=== PATIENT | male | born 1930 | race Caucasian/White ===

== ENCOUNTER 2017-06-09 08:31 | Day surgery (SDC) | payer MEDICARE, OTHER ==
[~2017-06-09] VITALS: Ht 177.8 cm; Wt 69.2 kg
[~2017-06-09 08:31] MED LIST: ASPIRIN 81M81 MG/TA2 PO; DUO-KAPS1 CAP PO; FISH OIL1000 MG PO; K-TAB20; LASIX 20MG TABL20 MG PO; PRAVACHOL80 MG PO; VITAMIN C500 MG PO
[2017-06-09 09:19] VITALS: BP 121/49; PULSE 71; TEMP 97.3
[2017-06-09 09:24] LABS: INR 1.6 (0.8-3.0); PROTHROMBIN TIME 17.9 SECONDS (9.7-12.8)
[2017-06-09] MEDS ORDERED: SYNTHROID 0.0.025 MG PO (09:25)
[2017-06-09] MEDS ORDERED: COUMADIN 5MG5 MG/TAB PO (09:27)
[2017-06-09] MEDS ORDERED: COUMADIN 22.5 MG/TAB PO (09:28)
[2017-06-09] MEDS ORDERED: LASIX 20MG TABL20 MG PO (09:30)
[2017-06-09] MEDS ORDERED: CALCIUM CARBON650 M2 (09:32)
[2017-06-09] MEDS ORDERED: MULTIPLE VITAMI1 CAP PO (09:32)
[2017-06-09] MEDS ORDERED: NORCO 325 MG-51 TAB PO (11:24)
[2017-06-09 13:00] VITALS: BP 144/57; PULSE 61; TEMP 98.3
== END 2017-06-09 13:50 | disposition home or self-care (01) ==
LOC: SDCO 08:31
PROVIDERS: Surgery
DX: K40.30 Unilateral inguinal hernia, with obstruction, without gangrene, not specified as recurrent (principal); E03.9 Hypothyroidism, unspecified; I25.2 Old myocardial infarction; I25.10 Atherosclerotic heart disease of native coronary artery without angina pectoris; M19.90 Unspecified osteoarthritis, unspecified site; Z90.79 Acquired absence of other genital organ(s); Z79.01 Long term (current) use of anticoagulants; Z85.46 Personal history of malignant neoplasm of prostate; Z86.718 Personal history of other venous thrombosis and embolism; Z82.49 Family history of ischemic heart disease and other diseases of the circulatory system
CPT/HCPCS: J0690; J1100; J2270; J2704; J3010; J7120

== ENCOUNTER 2018-02-09 08:34 | Day surgery (SDC) | payer MEDICARE, OTHER ==
[~2018-02-09] VITALS: Ht 177.8 cm; Wt 71.2 kg
[~2018-02-09 08:34] MED LIST changes: +CALCIUM CARBON650 M2; +COUMADIN 22.5 MG/TAB PO; +COUMADIN 5MG5 MG/TAB PO; +MULTIPLE VITAMI1 CAP PO; +NORCO 325 MG-51 TAB PO; +SYNTHROID 0.0.025 MG PO
[2018-02-09 09:23] VITALS: BP 121/57; PULSE 58; TEMP 97.3
[2018-02-09] MEDS ORDERED: NORCO 325 MG-51 TAB PO (12:24)
[2018-02-09 12:25] VITALS: BP 143/52; PULSE 52; TEMP 97.2
[2018-02-09 12:40] VITALS: BP 150/62; PULSE 54
[2018-02-09 12:55] VITALS: BP 148/52; PULSE 53
== END 2018-02-09 13:10 | disposition home or self-care (01) ==
LOC: SDCO 08:34
DX: K40.90 Unilateral inguinal hernia, without obstruction or gangrene, not specified as recurrent (principal); Z86.718 Personal history of other venous thrombosis and embolism; Z79.01 Long term (current) use of anticoagulants; Z79.899 Other long term (current) drug therapy; E03.9 Hypothyroidism, unspecified; I51.9 Heart disease, unspecified; Z85.46 Personal history of malignant neoplasm of prostate
CPT/HCPCS: C1781; J0690; J2704; J3010; J7120

== ENCOUNTER → 2018-07-04 | Outpatient (CLI) | payer MEDICARE, OTHER | LOC: COL.RAD 10:10 | DX: R10.13 Epigastric pain (principal) ==

== ENCOUNTER → 2018-07-30 | Outpatient (CLI) | payer MEDICARE, OTHER | LOC: COL.RAD 06:43 | DX: R10.11 Right upper quadrant pain (principal) | CPT/HCPCS: A9537 ==

== ENCOUNTER 2019-06-27 22:15 | Inpatient (IN) | payer MEDICARE, OTHER ==
[~2019-06-27] VITALS: Ht 177.8 cm; Wt 74.4 kg
[2019-06-27 22:42] LABS: BASO # 0.1 (0.0-0.2); BASO % 0.3 % (0.0-2.0); EOS % 0.1 % (0-4.0); GRAN # 12.8 (1.4-6.5); GRAN % 86.7 % (42.2-75.2); HEMATOCRIT 43.4 % (42.0-52.0); HEMOGLOBIN 14.7 g/dl (13.5-18.0); LYMPH # 1.2 (1.2-3.4); LYMPH % 8.3 % (20.0-51.0); MEAN CELL VOLUME 93 fl (80.0-100.0); MEAN CORPUSCULAR HEMOGLOBIN 32 pg (27.0-31.0); MEAN CORPUSCULAR HGB CONC 34 g/dl (33.0-37.0); MEAN PLATELET VOLUME 9.3 fl (7.4-10.4); MONO # 0.6 (0.1-0.6); MONO % 3.9 % (1.7-9.3); PLATELET COUNT 551 K/mm3 (130-400); RED BLOOD COUNT 4.66 M/mm3 (4.20-5.60); REDCELL DISTRIBUTION WIDTH-CV 14.4 % (11.5-14.5)
[2019-06-27 22:54] LABS: ALBUMIN 4.5 gm/dL (3.5-5.0); CALCIUM 9.3 mg/dL (8.4-10.2); CREATININE, serum 1.03 (0.66-1.25); TOTAL PROTEIN 7.6 gm/dL (6.4-8.2)
[2019-06-27 22:56] LABS: INR 1.8 (0.8-3.0); PROTHROMBIN TIME 21.8 SECONDS (9.7-12.8)
[2019-06-27 22:59] LABS: PARTIAL THROMBOPLASTIN TIME 37.3 SECONDS (26.0-37.0)
[2019-06-27 23:06] LABS: TROPONIN-I 0.013 ng/mL (0.000-0.035)
[2019-06-28] VITALS (8 sets, daily range): BP systolic 147–170; BP diastolic 72–99; PULSE 67–83; TEMP 97.5–98.6
[2019-06-28 02:08] LABS: COLLECTION METHOD CLEAN CATCH
[2019-06-28 02:17] LABS: MUCOUS Present /lpf; PH 6 (5-8); SQUAMOUS EPITHELIAL None Seen /hpf; URINE APPEARANCE Clear; URINE BACTERIA None Seen /hpf; URINE BILIRUBIN Negative (NEGATIVE); URINE BLOOD Negative (NEGATIVE); URINE COLOR Yellow; URINE GLUCOSE 2+ (NEGATIVE); URINE KETONE 2+ (NEGATIVE); URINE LEUKOCYTE ESTERASE Negative (NEGATIVE); URINE NITRATE Negative (NEGATIVE); URINE PROTEIN(semi-quant) Negative (NEGATIVE); URINE UROBILINOGEN Negative (NEGATIVE)
--- NOTE | 2019-06-28 03:30 | NUR ---
Patient to room via cart escorted by ER staff. O2 connected at 2L/NC. IV fluid bolus infusing at this time. 20 gauge in left AC with dressing CDI, no redness/drainage/edema noted at site. Respirations even and unlabored. Complains of pain in abd, chest, and upper back and describes as sharp. Family at bedside.
[2019-06-28] MEDS ORDERED: PROTONIX 40MG T40 MG PO (04:05)
--- NOTE | 2019-06-28 05:56 | NUR ---
Lying in bed in supine position with HOB elevated approximately 35 degrees. Patient nauseated and will occasionally have small amount of clear emesis. Continues to have some pain in the abdomen, chest, and upper back. Denies further needs at this time.
--- NOTE | 2019-06-28 06:16 | NUR ---
Administer phenergan as prescribed at this time. Patient says that he just does not feel well with the nausea and pain in stomach. Provided reassurance. Assisted patient in finding comfortable position in the bed. Patient denies further needs at this time.
[2019-06-28 08:01] LABS: HEMATOCRIT 45.6 % (42.0-52.0); HEMOGLOBIN 15.1 g/dl (13.5-18.0); MEAN CELL VOLUME 95 fl (80.0-100.0); MEAN CORPUSCULAR HEMOGLOBIN 32 pg (27.0-31.0); MEAN CORPUSCULAR HGB CONC 33 g/dl (33.0-37.0); MEAN PLATELET VOLUME 9.4 fl (7.4-10.4); PLATELET COUNT 552 K/mm3 (130-400); RED BLOOD COUNT 4.78 M/mm3 (4.20-5.60); REDCELL DISTRIBUTION WIDTH-CV 14.5 % (11.5-14.5)
[2019-06-28 08:11] LABS: CALCIUM 8.7 mg/dL (8.4-10.2); CREATININE, serum 0.93 (0.66-1.25); POTASSIUM 4.2 mmol/L (3.4-5.0)
[2019-06-28 08:24] LABS: BAND 13 % (0-10); LYMPHOCYTE 2 % (20.0-51.0); NEUTROPHILS 79 % (42.0-75.2); PLATELET ESTIMATE INCREASED (NORMAL)
--- NOTE | 2019-06-28 09:03 | NUR ---
Pt assessment completed and charted. Pt laying in bed, very drowsy, states he hasn't "slept much since being here w/ everything they have been doing". Pt on 3L NC, denies dizziness, chest pain, numbness, tingling. C/O nausea, minimal emesis in basin. Refused morning medications, pt is NPO. Radial and pedal pulses strong bilaterally. LS diminished throughout. LAC IV w/ IVF at 250 ml/hr, order to decrease rate to 150 w/ next bag. No other concerns expressed at this time. Therapy in to work w/ patient.
--- NOTE | 2019-06-28 09:52 | NUR ---
NIDHI met with the patient's , Alysia (ph#[phone]), to discuss discharge plan. The patient was sleeping. The patient lives in [place] with his . Alysia reports that the patient is independent with ADLs and has a cane. The patient's PCP is Dr. Elijah Nash and she receives her medications at [facility]. Alysia reports no difficulties obtaining her meds. The patient does not have advanced directives in EMR, but Alysia reports that the patient does have them completed and that she is his DPOA-HC. The patient plans to return home with Alysia upon discharge. No other additional needs at this time, but SW to continue to follow.
--- NOTE | 2019-06-28 11:33 | NUR ---
First visit from the board turner. Family asked if board turner would call their orthodoxy. Appliance Servicer called their orthodoxy and let them know that they were here. No other needs right now.
--- NOTE | 2019-06-28 13:53 | NUR ---
Radiology notified about NG tube insertion, no radioligist here today, awaiting for elevating grader operator to get back to this nurse. Dr. Underwood in to visit w/ patient again at this time, requesting info on why NG tube not placed. bench repair technician called again, informed this nurse of contact w/ radiologist machine container washer. This nurse attempted to contact Dr. Underwood about situation. Unable to get ahold of physician at this time. Will contact again.
--- NOTE | 2019-06-28 14:56 | NUR ---
This nurse was able to reach BETH Durbin for nursing staff to place NG tube. JEANETH Caldwell on floor, NG tube placed, hooked to low intermittent suction. Pt tolerated well. Tube secured to nose/gown and at 65 in. No other concerns expressed.
--- NOTE | 2019-06-28 16:45 | NUR ---
Pt called nurse station for help, pt pulled out NG tube. New 16F NG tube placed in left nares. Placement confirmed by xray. Tube is at 54, secured to nose and on low intermittent suction w/ beatty drainage.
--- NOTE | 2019-06-28 19:00 | NUR ---
Pt VS verified, noticed O2 was charted as 81% on 4L NC. This nurse checking on patient. Pt not wearing NC, NC put on, pt on 4.5 L, monitoring O2 sats. Pt sleeping, satting at 90%. Pt does have NG tube in and breathing mostly through mouth. Will continue to monitor.
--- NOTE | 2019-06-28 19:55 | NUR ---
Pt awakened while monitoring O2 sats. O2 jumped to 93-94% on 4.5 LNC. Pt turned back down to 3L NC and satting at 91-92% while awake. Discussed with rn night nurse and RT about possible increasing of o2 needs while sleeping d/t NG tube and breathing w/ mouth open. Staff will monitor. New blankets and covers given to patient. Family at bedside. No other concerns expressed at this time. NG tube on low intermittent suction, beatty drainage.
--- NOTE | 2019-06-28 20:30 | NUR ---
Patient assessed at this time. Drowsy, but awakened easliy. Alert and oriented x 4. Denies having pain and discomfort. NS running at 150 ml/hr to peripheral IV to left AC. Site is without redness, warmth, swelling, and pain. Denies having SOB and dyspnea. On oxygen at 3 L/min via NC. LS CTA in upper lobes, diminished in lower lobes. HRR. Telemetry: NS. NG tube to left nare: low intermittent suction with beatty contents. Some blood present, Dr. Underwood is aware and related to placement. BSAx4. Abdomen soft and non-tender. No edema. Voices no questions, needs, or concerns at this time. Resting in bed with call light within reach. HOB elevated.
--- NOTE | 2019-06-28 22:00 | NUR ---
Patient Lactic increased from 3.0 to 3.7. Called to Dr. Underwood for update. Order to recheck in 2 hours, and notify him if increases more. Order updated. Lab aware.
[2019-06-29] VITALS (49 sets, daily range): BP systolic 139–152; BP diastolic 67–97; PULSE 75–107; TEMP 98.1–99; O2SAT 86–99
[2019-06-29 03:07] LABS: ARTERIAL BLD GAS O2 SATURATION 91.2 % (92-100); ARTERIAL BLD GAS TCO2 CT 19.9; ARTERIAL BLOOD GAS BASE EXCESS -3.8 (-2-2); ARTERIAL BLOOD GAS HCO3 19.1 meq/L (22-26); ARTERIAL BLOOD GAS PCO2 29.1 mmHg (35-45); ARTERIAL BLOOD GAS PO2 57.2 mmHg (80-100); ARTERIAL BLOOD GAS pH 7.43 (7.35-7.45)
--- NOTE | 2019-06-29 03:45 | NUR ---
Report received from Rufina Histogen [facility].
--- NOTE | 2019-06-29 04:00 | NUR ---
Pt arrived via medical bed with personal belongings X2 nurse staff assistance. Pt is assisted with transfer X4 staff members into ICU 02 bed. Monitors attached and assessment completed.
--- NOTE | 2019-06-29 04:16 | NUR ---
At approximately 0235, this nurse went to check on patient. Patient coughing, turning red in the face. Used flashlight to look in throat. NG tube noted to be coiled up with end in mouth. NG tube taken out. VS: 98.7 78 24 142/72 87% on oxygen at 4 L/min via NC. Patient with frequent moist cough. LS coarse crackles in upper lobes, diminished in lower lobes. Called and updated CONSULTANT EDUCATION. Requested to notify Dr. Underwood to see what he suggests. Called and updated Dr. Underwood. Stated that he recommends chest X-ray and that patient may need BIPAP, but would defer that decision to hospitalist. Called and updated CONSULTANT EDUCATION again. Order for STAT ABG and X-ray. Notified RT and radiology. CONSULTANT EDUCATION in to see patient. Received orders to have patient transfer to ICU. Called and report given to ICU nurse at approximately 0350. Patient taken down to ICU.
--- NOTE | 2019-06-29 04:52 | NUR ---
Called and updated Alysia, patient's at this time of patient condition and transfer to ICU.
[2019-06-29 05:17] LABS: HEMATOCRIT 42.2 % (42.0-52.0); MEAN CELL VOLUME 96 fl (80.0-100.0); MEAN CORPUSCULAR HEMOGLOBIN 32 pg (27.0-31.0); MEAN CORPUSCULAR HGB CONC 33 g/dl (33.0-37.0); MEAN PLATELET VOLUME 9.3 fl (7.4-10.4); PLATELET COUNT 538 K/mm3 (130-400); RED BLOOD COUNT 4.41 M/mm3 (4.20-5.60)
[2019-06-29 05:23] LABS: INR 3.9 (0.8-3.0)
[2019-06-29 05:29] LABS: ALBUMIN 3.7 gm/dL (3.5-5.0); BILIRUBIN,TOTAL 1.1 mg/dL (0.0-1.0); CALCIUM 8.4 mg/dL (8.4-10.2); CREATININE, serum 1.14 (0.66-1.25); TOTAL PROTEIN 6.5 gm/dL (6.4-8.2)
[2019-06-29 05:39] LABS: BAND 14 % (0-10); EOSINOPHIL 1 % (0-4); LYMPHOCYTE 2 % (20.0-51.0); NEUTROPHILS 78 % (42.0-75.2)
[2019-06-29 05:40] LABS: PLATELET ESTIMATE INCREASED (NORMAL)
[2019-06-29 05:44] LABS: ARTERIAL BLD GAS O2 SATURATION 92.9 % (92-100); ARTERIAL BLD GAS TCO2 CT 21.7; ARTERIAL BLOOD GAS BASE EXCESS -2.6 (-2-2); ARTERIAL BLOOD GAS HCO3 20.7 meq/L (22-26); ARTERIAL BLOOD GAS pH 7.43 (7.35-7.45)
--- NOTE | 2019-06-29 07:05 | NUR ---
Bedside report provided to Pamela ERIC.
--- NOTE | 2019-06-29 12:00 | NUR ---
PATIENT LEAVES FOR [facility] AT THIS TIME. REPORT GIVEN TO BO, FRANKFURTER INSPECTOR WITH [facility]. REPORT ALSO CALLED TO JEANETH HEATH AT [facility]. PRESENT WHEN PATIENT LEAVES.
== END 2019-06-29 12:00 | disposition short-term general hospital (02) | DRG 871 ==
LOC: COL.ER 22:15 → MEDICAL 06-28 02:09 → ICU 06-29 04:10
PROVIDERS: Emergency Medicine; Nurse Practitioner Family; ADMIT Internal Medicine
DX: A41.9 Sepsis, unspecified organism (principal); J18.9 Pneumonia, unspecified organism; J96.01 Acute respiratory failure with hypoxia; K21.9 Gastro-esophageal reflux disease without esophagitis; K44.9 Diaphragmatic hernia without obstruction or gangrene; I25.10 Atherosclerotic heart disease of native coronary artery without angina pectoris; E03.9 Hypothyroidism, unspecified; R73.9 Hyperglycemia, unspecified; Z85.46 Personal history of malignant neoplasm of prostate; I25.2 Old myocardial infarction; Z86.73 Personal history of transient ischemic attack (TIA), and cerebral infarction without residual deficits; Z79.01 Long term (current) use of anticoagulants; Z90.79 Acquired absence of other genital organ(s); Z98.42 Cataract extraction status, left eye; Z98.41 Cataract extraction status, right eye; Z86.718 Personal history of other venous thrombosis and embolism
CPT/HCPCS: 99223-AI; A4216; C9113; J0696; J1170; J1650; J2270; J2405; J2543; J2550; J3010; J3430; J7030; Q9967

== ENCOUNTER 2020-09-30 10:43 | Day surgery (SDC) | payer MEDICARE, OTHER ==
[~2020-09-30] VITALS: Ht 177.8 cm; Wt 70.1 kg
[~2020-09-30 10:43] MED LIST changes: -MULTIPLE VITAMI1 CAP PO; +MULTIPLE VITAMI1 TA5 PO; +PROTONIX 40MG T40 MG PO
[2020-09-30 11:01] VITALS: BP 131/59; PULSE 64; TEMP 97.9
[2020-09-30 13:09] VITALS: BP 112/61; PULSE 59; TEMP 97.5
--- NOTE | 2020-09-30 13:09 | NUR ---
The patient arrived back to [place] [facility] from the operating room at this time. The patient appears drowsy but arouses easily to his name. The patient's post operative vital signs were started at this time. The patient's dressing to his left groin appears clean, dry and intact. The patient's is at his bedside at this time. Call light is within reach. Will continue to monitor the patient.
[2020-09-30 13:24] VITALS: BP 128/62; PULSE 53
--- NOTE | 2020-09-30 13:24 | NUR ---
The patient appears more alert at this time and agrees to try some orange juice and a muffin at this time. The patient's was given some water and a muffin also. The patient denies any pain or nausea at this time. Vital signs appear stable. Will conitnue to monitor the patient.
[2020-09-30 13:39] VITALS: BP 149/55; PULSE 55
--- NOTE | 2020-09-30 13:44 | NUR ---
The patient appeared to tolerate the food and drink well. The patient's vital signs remani stable. Call light is within reach. Will continue to monitor the patient.
[2020-09-30 14:00] VITALS: BP 148/55; PULSE 57
--- NOTE | 2020-09-30 14:00 | NUR ---
Discharge instructions were reviewed with the patient and his at this time. They both verbalized understanding and have no questions for the nurse at this time. The patient's IV to his left wrist was removed and a pressure dressing was applied to the site. The nurse instructed the patient to get dressed and notify the staff when he is ready to be escorted out.
--- NOTE | 2020-09-30 14:15 | NUR ---
The patient was escorted out via wheelchair to a private vehicle by JEANETH Bagley. The patient's belongings and discharge paperwork were sent with him. The patient's is present to drive him home.
== END 2020-09-30 14:15 | disposition home or self-care (01) ==
LOC: SDCO 10:43
DX: K40.91 Unilateral inguinal hernia, without obstruction or gangrene, recurrent (principal); E03.9 Hypothyroidism, unspecified; I25.2 Old myocardial infarction; Z85.46 Personal history of malignant neoplasm of prostate; E78.5 Hyperlipidemia, unspecified; K21.9 Gastro-esophageal reflux disease without esophagitis; M19.90 Unspecified osteoarthritis, unspecified site; Z20.822 Contact with and (suspected) exposure to COVID-19; Z79.01 Long term (current) use of anticoagulants; Z86.718 Personal history of other venous thrombosis and embolism; Z85.828 Personal history of other malignant neoplasm of skin; Z85.810 Personal history of malignant neoplasm of tongue; Z79.890 Hormone replacement therapy; Z79.899 Other long term (current) drug therapy
CPT/HCPCS: C1781; J0690; J2704; J3010; J7120